=== PATIENT | female | born 1950 | race Caucasian/White ===

== ENCOUNTER 2020-05-21 05:11 | Emergency (ER) | payer MEDICARE ==
[~2020-05-21] VITALS: Ht 157.5 cm; Wt 75.0 kg
[~2020-05-21 05:11] MED LIST: BACL10TA2 PO; BUPR150T8 PO; CALC600T14 PO; CHOL200012 PO; DULO-31 PO; LEVE750T66 PO; LEVO137T24 PO; LIOT5TAB14 PO; LOSA25TA96 PO; METF-900 PO; [UNRECOGNIZED DRUG - OTHER] PO
[2020-05-21] MEDS ORDERED: aspirin 81mg tab.chew PO ONE (05:15)
--- NOTE | 2020-05-21 05:20 | NUR ---
X RAY AT BEDSIDE
[2020-05-21 06:17] LABS: BASOPHILS # (AUTO) 0.1 X10'3 (0-0.2); EOSINOPHILS # (AUTO) 0.4 X10'3 (0-0.9); LYMPHOCYTES # (AUTO) 2.6 X10'3 (1.1-4.8); MEAN CORPUSCULAR HGB CONC 33.9 g/dL (33.0-36.5); MONOCYTES # (AUTO) 0.6 X10'3 (0-0.9); NEUTROPHILS % (AUTO) 44.8 % (42-75)
[2020-05-21 06:19] LABS: BASOPHILS % (AUTO) 1.5 % (0-1); EOSINOPHILS % (AUTO) 5.9 % (0-6); HEMATOCRIT 41.2 % (35.0-45.0); LYMPHOCYTES % (AUTO) 38.9 % (21-51); MEAN CORPUSCULAR HEMOGLOBIN 30.3 PG (27.0-31.0); MEAN CORPUSCULAR VOLUME 89.5 FL (78-98); MEAN PLATELET VOLUME 7.5 FL (7.4-10.4); MONOCYTES % (AUTO) 8.9 % (2-12); PLATELET COUNT 312 X10'3 (140-440); RED CELL DISTRIBUTION WIDTH 12.8 % (11.5-14.5); WHITE BLOOD COUNT 6.7 X10'3 (4.5-11.0)
[2020-05-21 06:32] LABS: ALANINE AMINOTRANSFERASE 31 U/L (12-78); ALBUMIN 3.8 G/DL (3.4-5.0); ALKALINE PHOSPHATASE 140 IU/L (46-116); ANION GAP 7 (8-16); ASPARTATE AMINO TRANSFERASE 24 U/L (10-37); BILIRUBIN,TOTAL 0.3 MG/DL (0.1-1.0); BLOOD UREA NITROGEN 24 MG/DL (7-18); BUN/CREATININE RATIO 25.5 (6.6-38.0); CALCIUM 9.4 MG/DL (8.5-10.1); CHLORIDE 103 MMOL/L (99-107); CREATININE 0.94 MG/DL (0.40-0.90); GLUCOSE 100 MG/DL (70-104); POTASSIUM 4.2 MMOL/L (3.5-5.1); SODIUM 139 MMOL/L (135-145); TOTAL CARBON DIOXIDE 29.4 MMOL/L (24-32); TOTAL PROTEIN 7.8 G/DL (6.4-8.2); eGFR 59 ML/MIN
[2020-05-21 06:36] LABS: PARTIAL THROMBOPLASTIN TIME 28 SECONDS (22-32)
[2020-05-21 06:39] LABS: MAGNESIUM 2.3 MG/DL (1.5-2.4)
[2020-05-21] MEDS ORDERED: normal saline 1000ml 1,000 ML IV ONE (07:35)
[2020-05-21 07:53] VITALS: BP 184/89
[2020-05-21] MEDS ORDERED: acetaminophen 325mg tablet PO ONE (08:00)
--- NOTE | 2020-05-21 08:00 | NUR ---
PT C/O HEAD PAIN, DR. ONEILL MADE AWARE.
== END 2020-05-21 09:25 | disposition home or self-care (01) ==
LOC: ER 05:12
DX: I10 Essential (primary) hypertension (principal); R07.89 Other chest pain; I25.10 Atherosclerotic heart disease of native coronary artery without angina pectoris; E78.00 Pure hypercholesterolemia, unspecified; Z88.0 Allergy status to penicillin; Z88.2 Allergy status to sulfonamides; Z88.1 Allergy status to other antibiotic agents; Z88.5 Allergy status to narcotic agent; Z88.8 Allergy status to other drugs, medicaments and biological substances; Z79.899 Other long term (current) drug therapy
CPT/HCPCS: 36415; 71045; 80053; 83735; 83880; 84484; 85025; 85610; 85730; 93005; 96360; 99285; J7030

== ENCOUNTER 2020-08-20 08:27 | Outpatient (CLI) | payer MEDICARE | END 2020-08-20 23:59 | disposition home or self-care (01) | LOC: RT 08:27 | PROVIDERS: ATTEND Family Medicine | DX: R06.02 Shortness of breath (principal) | CPT/HCPCS: 94010; 94727; 94729 ==

== ENCOUNTER 2021-12-15 12:39 | Outpatient (CLI) | payer MEDICARE | END 2021-12-15 23:59 | disposition home or self-care (01) | LOC: RAD 12:39 | PROVIDERS: ATTEND Nurse Practitioner Family | DX: R56.9 Unspecified convulsions (principal) | CPT/HCPCS: 95816 ==

== ENCOUNTER 2022-01-13 08:17 | Day surgery (SDC) | payer MEDICARE ==
[~2022-01-13] VITALS: Ht 157.5 cm; Wt 76.8 kg
[2022-01-13] VITALS (11 sets, daily range): BP systolic 119–146; BP diastolic 71–83
[2022-01-13] MEDS ORDERED: MELO-100 PO (08:51)
[2022-01-13] MEDS ORDERED: CARV12.5 PO (08:51)
[2022-01-13] MEDS ORDERED: DULO60CA65 PO (08:51)
[2022-01-13] MEDS ORDERED: AMLO10TA13 PO (08:51)
--- NOTE | 2022-01-13 10:55 | NUR ---
Pt returned from lumbar puncture, luis miguel VASQUEZ Addendum: 01/13/22 at 1451 by Zuleima Roth RN time of pt return form lumbar puncture [id number]
--- NOTE | 2022-01-13 12:00 | NUR ---
Pt given sandwich and water, alejandra well.
[2022-01-13] MEDS ORDERED: acetaminophen 325mg tablet PO PRN (12:15)
[2022-01-13 12:33] LABS: GLUCOSE,CSF 57 MG/DL (40-75)
[2022-01-13 12:37] LABS: TOTAL PROTEIN,CSF 76 MG/DL (30-60)
[2022-01-13 13:00] LABS: APPEARANCE,CSF HAZY
[2022-01-13 13:01] LABS: CSF RBC 1580 /CU MM (0); CSF SUPERNATANT COLOR COLORLESS; CSF VOLUME 14 ML; CSF WBC CT 5 /CU MM (0-5); TUBE# COUNTED 4
[2022-01-14 11:09] LABS: IMMUNOGLOBULIN G, QN, SERUM 919 mg/dL (586-1602)
[2022-01-18 17:30] LABS: IMMUNOGLOBULIN G, QN CSF 3.8 mg/dL (0.0-6.7)
== END 2022-01-13 14:00 | disposition home or self-care (01) ==
LOC: SSTAY O 08:17
PROVIDERS: ATTEND Nurse Practitioner Family
DX: R90.82 White matter disease, unspecified (principal); I25.10 Atherosclerotic heart disease of native coronary artery without angina pectoris; I10 Essential (primary) hypertension; E78.00 Pure hypercholesterolemia, unspecified; Z88.1 Allergy status to other antibiotic agents; Z88.2 Allergy status to sulfonamides; Z88.0 Allergy status to penicillin; Z88.5 Allergy status to narcotic agent; Z88.8 Allergy status to other drugs, medicaments and biological substances; Z79.899 Other long term (current) drug therapy; Z82.49 Family history of ischemic heart disease and other diseases of the circulatory system
CPT/HCPCS: 36415; 62328; 82040; 82042; 82164; 82784; 82945; 83873; 83916; 84157; 86592; 88108; 89051

== ENCOUNTER 2023-03-25 06:55 | Emergency (ER) | payer MEDICARE ==
[~2023-03-25] VITALS: Ht 157.5 cm; Wt 72.0 kg
[~2023-03-25 06:55] MED LIST changes: +AMLO10TA13 PO; -BUPR150T8 PO; +CARV12.5 PO; +DULO60CA65 PO; -LEVO137T24 PO; -LIOT5TAB14 PO; +MELO-100 PO; -METF-900 PO; -[UNRECOGNIZED DRUG - OTHER] PO
[2023-03-25 07:08] VITALS: BP 134/77
[2023-03-25] MEDS ORDERED: LIDOcaine 5% patch TP STA (09:17)
[2023-03-25] MEDS ORDERED: methylPREDNISolone sod succ 125mg/2ml vial IM ONE (09:20)
[2023-03-25] MEDS ORDERED: HYDR-3973 PO (09:29)
[2023-03-25] MEDS ORDERED: METH4TAB81 PO (09:29)
== END 2023-03-25 09:43 | disposition home or self-care (01) ==
LOC: ER 06:56
DX: M25.511 Pain in right shoulder (principal); I10 Essential (primary) hypertension; E78.00 Pure hypercholesterolemia, unspecified; Z88.0 Allergy status to penicillin; Z88.2 Allergy status to sulfonamides; Z88.1 Allergy status to other antibiotic agents; Z91.041 Radiographic dye allergy status
CPT/HCPCS: 96372; 99283; J2930

== ENCOUNTER 2024-11-21 10:02 | Inpatient (IN) | payer MEDICARE ==
[2024-11-21] VITALS (12 sets, daily range): BP systolic 70–121; BP diastolic 45–68; PULSE 80–156; RESP 16–22; O2SAT 92–100
[~2024-11-21] VITALS: Ht 157.5 cm; Wt 81.0 kg
[~2024-11-21 10:02] MED LIST changes: +LOSA-415 PO; -LOSA25TA96 PO; +METH4TAB81 PO; +rocuronium 10mg/ml inj IV ONE
[2024-11-21 10:36] LABS: BASOPHILS % (AUTO) 0.2 % (0-1); EOSINOPHILS % (AUTO) 0 % (0-6); HEMATOCRIT 40.8 % (35.0-45.0); LYMPHOCYTES # (AUTO) 0.9 X10'3 (1.1-4.8); LYMPHOCYTES % (AUTO) 7.3 % (21-51); MEAN CORPUSCULAR HEMOGLOBIN 31.2 PG (27.0-31.0); MEAN CORPUSCULAR HGB CONC 34.4 g/dL (33.0-36.5); MEAN CORPUSCULAR VOLUME 90.7 FL (78-98); MEAN PLATELET VOLUME 7.3 FL (7.4-10.4); MONOCYTES % (AUTO) 8.8 % (2-12); NEUTROPHILS % (AUTO) 83.7 % (42-75); PLATELET COUNT 259 X10'3 (140-440); RED CELL DISTRIBUTION WIDTH 12.5 % (11.5-14.5); WHITE BLOOD COUNT 11.9 X10'3 (4.5-11.0)
[2024-11-21 10:45] LABS: D-DIMER 0.92 MG/L FEU (0-0.50)
[2024-11-21 11:04] LABS: ALBUMIN 3.6 G/DL (3.4-5.0); ANION GAP 9 (8-16); BLOOD UREA NITROGEN 12 MG/DL (7-18); BUN/CREATININE RATIO 14.5 (10.0-20.0); CHLORIDE 94 MMOL/L (99-107); CREATININE 0.83 MG/DL (0.40-0.90); GLUCOSE 165 MG/DL (70-104); MAGNESIUM 1.8 MG/DL (1.5-2.4); POTASSIUM 3.7 MMOL/L (3.5-5.1); PRO BRAIN NATRIURETIC PEPTIDE 461 PG/ML (0-450); SODIUM 129 MMOL/L (135-145); TOTAL CARBON DIOXIDE 26.3 MMOL/L (24-32); eCRCL 46 ML/MIN; eGFR 67 ML/MIN
[2024-11-21] MEDS ORDERED: iohexol 350MG/ML 100ml bottle IV ONE (11:23)
[2024-11-21] MEDS: dexamethasone sod phosphate 10mg/ml inj IV STA (12:33)
[2024-11-21] MEDS: CefTRIAXone 2gm/D5W 50ml BAG 50 ML IV ONE (12:34)
[2024-11-21] MEDS: normal saline 1000ML IV soln IVB ONE ×2 (13:03→14:50)
[2024-11-21] MEDS: vancomycin/NS 1 GM ADD-VANTAGE 250 ML IV SCH (13:03)
[2024-11-21 14:49] LABS: ABG BASE EXCESS -7.4 mmol/L (-2.0-3.0); ABG HCO3 20.1 mmol/L (21.0-28.0); ABG PCO2 (T) 50.9 mmHg (32.0-45.0); ABG PH (T) 7.222 (7.350-7.450); ABG PO2 (T) 63.5 mmHg (83.0-108.0); ALLEN'S TEST POSITIVE; FCOHb 0.3 % (0.5-1.5); FHHb 12.9 % (0.0-5.0); FMetHb 0.1 % (0.0-1.5); FO2Hb 86.7 % (94.0-98.0); MODE VENT - AC; PATIENT TEMPERATURE 38.2; PEEP 8 cm H2O; RESPIRATORY RATE 18 b/min; TIDAL VOLUME 350 mL; TOTAL HEMOGLOBIN 15.1 G/dl (12.0-16.0)
[2024-11-21] MEDS: propofol 1000mg/100ml bottle 100 ML IV SCH ×2 (14:51→16:41)
[2024-11-21] MEDS: LidoCAINE 2% Topical Jelly 11mL syringe (UROJET) TOP ONE (14:51)
[2024-11-21] MEDS ORDERED: magnesium hydroxide 30ml (MOM) UD suspension PO PRN (15:05)
[2024-11-21] MEDS ORDERED: morphine 4 MG/ML inj SYRINge IV PRN (15:05)
[2024-11-21] MEDS ORDERED: acetaminophen 325mg tablet PO PRN ×2 (15:05)
[2024-11-21] MEDS ORDERED: morphine 2 MG/ML inj. syringe IV PRN (15:05)
[2024-11-21 15:16] LABS: BILIRUBIN,URINE NEGATIVE (Neg); CLARITY,URINE CLEAR (Clear); COLOR,URINE YELLOW (Yellow); GLUCOSE, URINE NEGATIVE (Neg); KETONES,URINE TRACE mg/dl (Neg); LEUKOCYTE ESTERASE ,URINE NEGATIVE (Neg); NITRITES, URINE NEGATIVE (Neg); OCCULT BLOOD,URINE TRACE-INTACT (Neg); PROTEIN,URINE 100 mg/dl (Neg); UROBILINOGEN,URINE 0.2 E.U/dL (0.2-1.0)
[2024-11-21 15:21] LABS: UA COLLECTION TYPE STRAIGHT CATH
[2024-11-21 15:24] LABS: BACTERIA,URINE NONE SEEN /HPF (Neg); RBC,URINE 0-2 /HPF (0-2); SQUAMOUS EPITHELIAL CELL,UR FEW /LPF (FEW); WBC,URINE NONE SEEN /HPF (0-4)
[2024-11-21] MEDS: normal saline 1000ml 1,000 ML IV ONE (15:59)
[2024-11-21] MEDS: acetaminophen 1,000mg/100ml IV 100 ML IV ONE (16:00)
[2024-11-21] MEDS ORDERED: fentaNYL/PF 50MCG/1 ML 2ML syringe IV PRN (16:05)
[2024-11-21] MEDS: FENTANYL-0.9 % NACL/PF 100 ML IV SCH (17:11)
[2024-11-21] MEDS: NORepinephrine 8mg/ 250ml NS 250 ML IV SCH (17:52)
[2024-11-21] MEDS: ringers solution, lacted 1,000 ML IV ONE (17:53)
[2024-11-21] MEDS: methylPREDNISolone sod succ 125mg/2ml vial IV SCH (19:12)
[2024-11-21] MEDS: ringers solution, lacted 1,000 ML IV SCH (19:13)
[2024-11-21] MEDS: linezolid 600mg/300ml PREMIX 300 ML IV SCH (20:07)
[2024-11-21] MEDS: oseltamivir phos 75mg capsule PO SCH (20:07)
[2024-11-21] MEDS: enoxaparin 40mg/0.4ml syringe SUBCUT SCH (20:07)
[2024-11-21] MEDS: doxycycline inj 100 MG in normal saline 100ml IV soln 100 ML IV SCH (20:07)
[2024-11-22] VITALS (37 sets, daily range): BP systolic 94–131; BP diastolic 47–69; PULSE 66–87; RESP 18–24; O2SAT 93–97
[2024-11-22 03:09] LABS: BASOPHILS % (AUTO) 0.1 % (0-1); EOSINOPHILS % (AUTO) 0 % (0-6); HEMATOCRIT 35.6 % (35.0-45.0); HEMOGLOBIN 12.2 g/dl (12.0-16.0); LYMPHOCYTES # (AUTO) 1.2 X10'3 (1.1-4.8); LYMPHOCYTES % (AUTO) 8.4 % (21-51); MEAN CORPUSCULAR HGB CONC 34.2 g/dL (33.0-36.5); MEAN CORPUSCULAR VOLUME 90.5 FL (78-98); MEAN PLATELET VOLUME 7.4 FL (7.4-10.4); MONOCYTES # (AUTO) 0.5 X10'3 (0-0.9); MONOCYTES % (AUTO) 3.7 % (2-12); NEUTROPHILS # (AUTO) 12.1 X10'3 (1.8-7.7); NEUTROPHILS % (AUTO) 87.8 % (42-75); PLATELET COUNT 250 X10'3 (140-440); RED BLOOD COUNT 3.94 X10'6 (4.20-5.60); RED CELL DISTRIBUTION WIDTH 12.4 % (11.5-14.5); WHITE BLOOD COUNT 13.8 X10'3 (4.5-11.0)
[2024-11-22 03:25] LABS: ALANINE AMINOTRANSFERASE 40 U/L (12-78); ALBUMIN 2.1 G/DL (3.4-5.0); ALBUMIN/GLOBULIN RATIO 0.6 (1.1-1.5); ALKALINE PHOSPHATASE 128 IU/L (46-116); ANION GAP 7 (8-16); ASPARTATE AMINO TRANSFERASE 55 U/L (10-37); BILIRUBIN,TOTAL 0.4 MG/DL (0.1-1.0); BLOOD UREA NITROGEN 10 MG/DL (7-18); BUN/CREATININE RATIO 14.9 (10.0-20.0); CALCIUM 7.6 MG/DL (8.5-10.1); CHLORIDE 106 MMOL/L (99-107); CREATININE 0.67 MG/DL (0.40-0.90); GLUCOSE 210 MG/DL (70-104); MAGNESIUM 1.6 MG/DL (1.5-2.4); POTASSIUM 3.3 MMOL/L (3.5-5.1); SODIUM 137 MMOL/L (135-145); TOTAL CARBON DIOXIDE 23.9 MMOL/L (24-32); TOTAL PROTEIN 5.9 G/DL (6.4-8.2); eCRCL 57 ML/MIN; eGFR 86 ML/MIN
[2024-11-22 03:37] LABS: ABG BASE EXCESS -3.9 mmol/L (-2.0-3.0); ABG HCO3 20.7 mmol/L (21.0-28.0); ABG OXYGEN SATURATION 95.7 % (94.0-98.0); ABG PCO2 (T) 35.3 mmHg (32.0-45.0); ABG PH (T) 7.384 (7.350-7.450); ABG PO2 (T) 73.3 mmHg (83.0-108.0); ALLEN'S TEST POSITIVE; FCOHb 0.3 % (0.5-1.5); FHHb 4.3 % (0.0-5.0); FMetHb 0.3 % (0.0-1.5); FO2Hb 95.1 % (94.0-98.0); MODE VENT - AC; PATIENT TEMPERATURE 36.6; PEEP 12 cm H2O; RESPIRATORY RATE 18 b/min; TIDAL VOLUME 350 mL; TOTAL HEMOGLOBIN 13.1 G/dl (12.0-16.0)
[2024-11-22] MEDS ORDERED: magnesium sulf-water 4G/100mL 100 ML IV PRN (04:05)
[2024-11-22] MEDS ORDERED: magnesium sulf-water 2g/50mL 50 ML IV PRN (04:05)
[2024-11-22] MEDS ORDERED: glucagon, human recombinant 1mg kit SUBCUT PRN ×2 (04:15→07:35)
[2024-11-22] MEDS ORDERED: DEXTROSE 15 GM of carb/4 tabs (each vial/BOTTLE has 4 tablets) PO PRN ×4 (04:15→07:35)
[2024-11-22] MEDS ORDERED: dextrose 50%-water 50ml dispensing syringe IV PRN ×4 (04:15→07:35)
[2024-11-22] MEDS: potassium Cl 40MEQ/270ML bag 270 ML IV PRN (04:31)
[2024-11-22] MEDS ORDERED: INSULIN LISPRO 100 UNIT/ML INSULN.PEN MULTI-DOSE SQ SCH (07:00)
[2024-11-22] MEDS ORDERED: OSELTAMIVIR 30MG/5ML (6MG/ML) **ORAL** SYRINGE OGT SCH (07:24)
[2024-11-22] MEDS: pantoprazole 40 MG vial IV SCH (07:26)
[2024-11-22] MEDS ORDERED: NPH, human insulin isophane inj. SQ SCH (08:00)
[2024-11-22] MEDS: OSELTAMIVIR 30MG/5ML (6MG/ML) **ORAL** SYRINGE OGT SCH (08:00)
[2024-11-22] MEDS ORDERED: Dextrose 10%-water IV solution 1,000 ML IV SCH (08:05)
[2024-11-22] MEDS ORDERED: magnesium hydroxide 30ml (MOM) UD suspension OGT PRN (12:03)
[2024-11-22] MEDS ORDERED: DEXTROSE 15 GM of carb/4 tabs (each vial/BOTTLE has 4 tablets) OGT PRN ×2 (12:03)
[2024-11-22 12:18] LABS: PREALBUMIN 10.3 MG/DL (19-36); TRIGLYCERIDES 81 MG/DL (20-135)
[2024-11-22] MEDS: insulin regular, human U-100 10ml vial - multi-dose SQ SCH (13:39)
[2024-11-22] MEDS: furosemide 10 MG/1 ML 10ml inj IV ONE (16:48)
[2024-11-22] MEDS: mineral oil/petrolatum ophthal oint EACHEYE SCH (19:51)
[2024-11-22] MEDS: enoxaparin 40mg/0.4ml syringe SUBCUT SCH (19:51)
[2024-11-23] VITALS (39 sets, daily range): BP systolic 97–144; BP diastolic 45–65; PULSE 64–87; RESP 9–23; O2SAT 91–97
[2024-11-23] MEDS ORDERED: VANCOMYCIN LEVEL IV ONE (00:30)
[2024-11-23 01:50] LABS: BASOPHILS % (AUTO) 0.1 % (0-1); EOSINOPHILS % (AUTO) 0 % (0-6); HEMATOCRIT 31.1 % (35.0-45.0); HEMOGLOBIN 10.5 g/dl (12.0-16.0); LYMPHOCYTES # (AUTO) 1.2 X10'3 (1.1-4.8); LYMPHOCYTES % (AUTO) 9.1 % (21-51); MEAN CORPUSCULAR HEMOGLOBIN 30.6 PG (27.0-31.0); MEAN CORPUSCULAR HGB CONC 33.7 g/dL (33.0-36.5); MEAN CORPUSCULAR VOLUME 91.1 FL (78-98); MEAN PLATELET VOLUME 8.5 FL (7.4-10.4); MONOCYTES # (AUTO) 0.6 X10'3 (0-0.9); MONOCYTES % (AUTO) 4.5 % (2-12); NEUTROPHILS % (AUTO) 86.3 % (42-75); PLATELET COUNT 222 X10'3 (140-440); RED BLOOD COUNT 3.42 X10'6 (4.20-5.60); RED CELL DISTRIBUTION WIDTH 12.7 % (11.5-14.5); WHITE BLOOD COUNT 12.7 X10'3 (4.5-11.0)
[2024-11-23 02:06] LABS: ALANINE AMINOTRANSFERASE 37 U/L (12-78); ALBUMIN 1.9 G/DL (3.4-5.0); ALBUMIN/GLOBULIN RATIO 0.5 (1.1-1.5); ALKALINE PHOSPHATASE 107 IU/L (46-116); ANION GAP 7 (8-16); ASPARTATE AMINO TRANSFERASE 36 U/L (10-37); BILIRUBIN,TOTAL 0.2 MG/DL (0.1-1.0); BLOOD UREA NITROGEN 22 MG/DL (7-18); BUN/CREATININE RATIO 28.9 (10.0-20.0); CALCIUM 7.6 MG/DL (8.5-10.1); CHLORIDE 108 MMOL/L (99-107); CREATININE 0.76 MG/DL (0.40-0.90); GLUCOSE 212 MG/DL (70-104); MAGNESIUM 1.7 MG/DL (1.5-2.4); PHOSPHORUS 1.9 MG/DL (2.3-4.5); POTASSIUM 3.8 MMOL/L (3.5-5.1); SODIUM 141 MMOL/L (135-145); TOTAL CARBON DIOXIDE 25.7 MMOL/L (24-32); TOTAL PROTEIN 5.5 G/DL (6.4-8.2); eCRCL 51 ML/MIN; eGFR 74 ML/MIN
[2024-11-23 03:16] LABS: ABG BASE EXCESS -2.6 mmol/L (-2.0-3.0); ABG PCO2 (T) 36.8 mmHg (32.0-45.0); ABG PH (T) 7.393 (7.350-7.450); ABG PO2 (T) 70.7 mmHg (83.0-108.0); FCOHb 0.3 % (0.5-1.5); FMetHb 0.3 % (0.0-1.5); FO2Hb 94.4 % (94.0-98.0); MODE ac/prvc; PATIENT TEMPERATURE 36.5; PEEP 8 cm H2O; RESPIRATORY RATE 18 b/min; TIDAL VOLUME 350 mL; TOTAL HEMOGLOBIN 11.1 G/dl (12.0-16.0)
[2024-11-24] VITALS (33 sets, daily range): BP systolic 102–172; BP diastolic 51–74; PULSE 59–85; RESP 17–25; O2SAT 90–99
[2024-11-24 02:02] LABS: BASOPHILS % (AUTO) 0.1 % (0-1); EOSINOPHILS % (AUTO) 0.1 % (0-6); HEMATOCRIT 30.7 % (35.0-45.0); HEMOGLOBIN 10.5 g/dl (12.0-16.0); LYMPHOCYTES # (AUTO) 1.3 X10'3 (1.1-4.8); LYMPHOCYTES % (AUTO) 9.5 % (21-51); MEAN CORPUSCULAR HEMOGLOBIN 30.8 PG (27.0-31.0); MEAN CORPUSCULAR VOLUME 90.4 FL (78-98); MEAN PLATELET VOLUME 8.3 FL (7.4-10.4); MONOCYTES # (AUTO) 0.8 X10'3 (0-0.9); MONOCYTES % (AUTO) 5.6 % (2-12); NEUTROPHILS # (AUTO) 11.5 X10'3 (1.8-7.7); NEUTROPHILS % (AUTO) 84.7 % (42-75); PLATELET COUNT 225 X10'3 (140-440); WHITE BLOOD COUNT 13.5 X10'3 (4.5-11.0)
[2024-11-24 02:10] LABS: ALANINE AMINOTRANSFERASE 75 U/L (12-78); ALBUMIN/GLOBULIN RATIO 0.6 (1.1-1.5); ALKALINE PHOSPHATASE 140 IU/L (46-116); ANION GAP 7 (8-16); ASPARTATE AMINO TRANSFERASE 87 U/L (10-37); BILIRUBIN,TOTAL 0.3 MG/DL (0.1-1.0); BLOOD UREA NITROGEN 36 MG/DL (7-18); BUN/CREATININE RATIO 47.4 (10.0-20.0); CALCIUM 7.7 MG/DL (8.5-10.1); CHLORIDE 106 MMOL/L (99-107); CREATININE 0.76 MG/DL (0.40-0.90); GLUCOSE 181 MG/DL (70-104); MAGNESIUM 1.8 MG/DL (1.5-2.4); PHOSPHORUS 2.3 MG/DL (2.3-4.5); POTASSIUM 3.9 MMOL/L (3.5-5.1); SODIUM 138 MMOL/L (135-145); TOTAL CARBON DIOXIDE 24.9 MMOL/L (24-32); TOTAL PROTEIN 5.6 G/DL (6.4-8.2); eCRCL 51 ML/MIN; eGFR 74 ML/MIN
[2024-11-24 03:30] LABS: ABG BASE EXCESS -2.1 mmol/L (-2.0-3.0); ABG HCO3 23.2 mmol/L (21.0-28.0); ABG OXYGEN SATURATION 92.8 % (94.0-98.0); ABG PH (T) 7.368 (7.350-7.450); ABG PO2 (T) 62.2 mmHg (83.0-108.0); FCOHb 0.3 % (0.5-1.5); FHHb 7.2 % (0.0-5.0); FMetHb 0.3 % (0.0-1.5); FO2Hb 92.2 % (94.0-98.0); MODE AC/PRVC; PATIENT TEMPERATURE 36.5; PEEP 8 cm H2O; RESPIRATORY RATE 18 b/min; TIDAL VOLUME 350 mL; TOTAL HEMOGLOBIN 10.8 G/dl (12.0-16.0)
[2024-11-24 03:53] LABS: TRIGLYCERIDES 317 MG/DL (20-135)
[2024-11-24] MEDS: methylPREDNISolone sod succ/PF 40mg inj. IV SCH (08:31)
[2024-11-24] MEDS: furosemide 10 MG/1 ML 10ml inj IV ONE (08:35)
[2024-11-24] MEDS: ondansetron/PF 4mg/2ml inj IV PRN (20:47)
[2024-11-24] MEDS: midazolam 100mg in NS 100ml 100 ML IV SCH (21:09)
[2024-11-25] VITALS (34 sets, daily range): BP systolic 108–171; BP diastolic 52–70; PULSE 59–74; RESP 18–20; O2SAT 91–96
[2024-11-25 02:48] LABS: BASOPHILS % (AUTO) 0.1 % (0-1); EOSINOPHILS % (AUTO) 0 % (0-6); HEMATOCRIT 28.8 % (35.0-45.0); HEMOGLOBIN 9.7 g/dl (12.0-16.0); LYMPHOCYTES % (AUTO) 13.2 % (21-51); MEAN CORPUSCULAR HEMOGLOBIN 30.7 PG (27.0-31.0); MEAN CORPUSCULAR HGB CONC 33.8 g/dL (33.0-36.5); MEAN CORPUSCULAR VOLUME 90.8 FL (78-98); MEAN PLATELET VOLUME 8.3 FL (7.4-10.4); MONOCYTES # (AUTO) 0.6 X10'3 (0-0.9); MONOCYTES % (AUTO) 3.9 % (2-12); NEUTROPHILS # (AUTO) 12.4 X10'3 (1.8-7.7); NEUTROPHILS % (AUTO) 82.8 % (42-75); PLATELET COUNT 226 X10'3 (140-440); RED BLOOD COUNT 3.17 X10'6 (4.20-5.60); RED CELL DISTRIBUTION WIDTH 12.6 % (11.5-14.5); WHITE BLOOD COUNT 14.9 X10'3 (4.5-11.0)
[2024-11-25 03:06] LABS: ALANINE AMINOTRANSFERASE 103 U/L (12-78); ALBUMIN 1.9 G/DL (3.4-5.0); ALBUMIN/GLOBULIN RATIO 0.6 (1.1-1.5); ALKALINE PHOSPHATASE 137 IU/L (46-116); ANION GAP 6 (8-16); ASPARTATE AMINO TRANSFERASE 63 U/L (10-37); BILIRUBIN,TOTAL 0.4 MG/DL (0.1-1.0); BLOOD UREA NITROGEN 35 MG/DL (7-18); BUN/CREATININE RATIO 51.5 (10.0-20.0); CALCIUM 7.7 MG/DL (8.5-10.1); CHLORIDE 110 MMOL/L (99-107); CREATININE 0.68 MG/DL (0.40-0.90); GLUCOSE 161 MG/DL (70-104); POTASSIUM 3.6 MMOL/L (3.5-5.1); SODIUM 146 MMOL/L (135-145); TOTAL CARBON DIOXIDE 30.5 MMOL/L (24-32); TOTAL PROTEIN 5.2 G/DL (6.4-8.2); eCRCL 57 ML/MIN; eGFR 84 ML/MIN
[2024-11-25 03:31] LABS: ABG BASE EXCESS -0.7 mmol/L (-2.0-3.0); ABG OXYGEN SATURATION 95.9 % (94.0-98.0); ABG PH (T) 7.458 (7.350-7.450); ABG PO2 (T) 73.4 mmHg (83.0-108.0); FCOHb 0.3 % (0.5-1.5); FHHb 4.1 % (0.0-5.0); FMetHb 0.3 % (0.0-1.5); FO2Hb 95.3 % (94.0-98.0); MODE ac/prvc; PATIENT TEMPERATURE 36.2; PEEP 8 cm H2O; RESPIRATORY RATE 18 b/min; TIDAL VOLUME 350 mL; TOTAL HEMOGLOBIN 10.1 G/dl (12.0-16.0)
[2024-11-25] MEDS: propofol 1000mg/100ml bottle 100 ML IV SCH (16:15)
[2024-11-26] VITALS (34 sets, daily range): BP systolic 133–180; BP diastolic 55–82; PULSE 58–80; RESP 14–19; O2SAT 92–98
[2024-11-26 02:18] LABS: BASOPHILS % (AUTO) 0.1 % (0-1); EOSINOPHILS % (AUTO) 0 % (0-6); HEMATOCRIT 29.5 % (35.0-45.0); HEMOGLOBIN 10.1 g/dl (12.0-16.0); LYMPHOCYTES # (AUTO) 1.4 X10'3 (1.1-4.8); LYMPHOCYTES % (AUTO) 10.9 % (21-51); MEAN CORPUSCULAR HGB CONC 34.2 g/dL (33.0-36.5); MEAN CORPUSCULAR VOLUME 90.5 FL (78-98); MEAN PLATELET VOLUME 7.8 FL (7.4-10.4); MONOCYTES # (AUTO) 0.6 X10'3 (0-0.9); NEUTROPHILS # (AUTO) 10.7 X10'3 (1.8-7.7); PLATELET COUNT 259 X10'3 (140-440); RED BLOOD COUNT 3.26 X10'6 (4.20-5.60); RED CELL DISTRIBUTION WIDTH 12.8 % (11.5-14.5); WHITE BLOOD COUNT 12.8 X10'3 (4.5-11.0)
[2024-11-26 02:34] LABS: ALANINE AMINOTRANSFERASE 91 U/L (12-78); ALBUMIN/GLOBULIN RATIO 0.6 (1.1-1.5); ALKALINE PHOSPHATASE 131 IU/L (46-116); ANION GAP 6 (8-16); ASPARTATE AMINO TRANSFERASE 36 U/L (10-37); BILIRUBIN,TOTAL 0.4 MG/DL (0.1-1.0); BLOOD UREA NITROGEN 36 MG/DL (7-18); CALCIUM 7.7 MG/DL (8.5-10.1); CHLORIDE 111 MMOL/L (99-107); CREATININE 0.61 MG/DL (0.40-0.90); GLUCOSE 200 MG/DL (70-104); MAGNESIUM 2.2 MG/DL (1.5-2.4); PHOSPHORUS 2.9 MG/DL (2.3-4.5); POTASSIUM 3.5 MMOL/L (3.5-5.1); PREALBUMIN 33.8 MG/DL (19-36); SODIUM 147 MMOL/L (135-145); TOTAL CARBON DIOXIDE 29.7 MMOL/L (24-32); TOTAL PROTEIN 5.3 G/DL (6.4-8.2); TRIGLYCERIDES 266 MG/DL (20-135); eCRCL 63 ML/MIN; eGFR > 90 ML/MIN
[2024-11-26 03:19] LABS: ABG HCO3 27.7 mmol/L (21.0-28.0); ABG OXYGEN SATURATION 93.9 % (94.0-98.0); ABG PCO2 (T) 41.3 mmHg (32.0-45.0); ABG PH (T) 7.441 (7.350-7.450); ABG PO2 (T) 64.1 mmHg (83.0-108.0); ALLEN'S TEST NEGATIVE; FCOHb 0.3 % (0.5-1.5); FHHb 6.1 % (0.0-5.0); FMetHb 0.3 % (0.0-1.5); FO2Hb 93.3 % (94.0-98.0); MODE ac/prvc; PATIENT TEMPERATURE 36.2; PEEP 8 cm H2O; RESPIRATORY RATE 18 b/min; TIDAL VOLUME 350 mL; TOTAL HEMOGLOBIN 10.8 G/dl (12.0-16.0)
[2024-11-26] MEDS: furosemide 10 MG/1 ML 10ml inj IV ONE (06:10)
[2024-11-26] MEDS: methylPREDNISolone sod succ/PF 40mg inj. IV SCH (07:46)
[2024-11-26] MEDS ORDERED: furosemide 40mg/4ml inj IV SCH (10:43)
[2024-11-26] MEDS: labetalol 100mg tablet PO SCH (16:10)
[2024-11-26] MEDS: furosemide 40mg/4ml inj IV SCH (21:39)
[2024-11-27] VITALS (34 sets, daily range): BP systolic 141–190; BP diastolic 59–89; PULSE 55–99; RESP 11–19; O2SAT 89–98
[2024-11-27 02:20] LABS: BASOPHILS % (AUTO) 0 % (0-1); EOSINOPHILS % (AUTO) 0 % (0-6); HEMOGLOBIN 10.6 g/dl (12.0-16.0); LYMPHOCYTES # (AUTO) 1.7 X10'3 (1.1-4.8); LYMPHOCYTES % (AUTO) 13.1 % (21-51); MEAN CORPUSCULAR HEMOGLOBIN 30.6 PG (27.0-31.0); MEAN CORPUSCULAR HGB CONC 34.1 g/dL (33.0-36.5); MEAN CORPUSCULAR VOLUME 89.9 FL (78-98); MEAN PLATELET VOLUME 7.6 FL (7.4-10.4); MONOCYTES # (AUTO) 1.1 X10'3 (0-0.9); MONOCYTES % (AUTO) 8.5 % (2-12); NEUTROPHILS % (AUTO) 78.4 % (42-75); PLATELET COUNT 304 X10'3 (140-440); RED BLOOD COUNT 3.45 X10'6 (4.20-5.60); WHITE BLOOD COUNT 12.8 X10'3 (4.5-11.0)
[2024-11-27 02:29] LABS: ALANINE AMINOTRANSFERASE 79 U/L (12-78); ALBUMIN/GLOBULIN RATIO 0.6 (1.1-1.5); ALKALINE PHOSPHATASE 122 IU/L (46-116); ANION GAP 3 (8-16); ASPARTATE AMINO TRANSFERASE 30 U/L (10-37); BILIRUBIN,TOTAL 0.4 MG/DL (0.1-1.0); BLOOD UREA NITROGEN 40 MG/DL (7-18); BUN/CREATININE RATIO 54.8 (10.0-20.0); CALCIUM 7.5 MG/DL (8.5-10.1); CHLORIDE 107 MMOL/L (99-107); CREATININE 0.73 MG/DL (0.40-0.90); GLUCOSE 145 MG/DL (70-104); PHOSPHORUS 3.3 MG/DL (2.3-4.5); POTASSIUM 3.2 MMOL/L (3.5-5.1); SODIUM 144 MMOL/L (135-145); TOTAL CARBON DIOXIDE 33.6 MMOL/L (24-32); TOTAL PROTEIN 5.6 G/DL (6.4-8.2); eCRCL 53 ML/MIN; eGFR 78 ML/MIN
[2024-11-27 02:40] LABS: TOTAL CELLS COUNTED 100
[2024-11-27 03:45] LABS: ABG BASE EXCESS 7.5 mmol/L (-2.0-3.0); ABG HCO3 31.4 mmol/L (21.0-28.0); ABG OXYGEN SATURATION 94.1 % (94.0-98.0); ABG PCO2 (T) 40.9 mmHg (32.0-45.0); ABG PH (T) 7.502 (7.350-7.450); ABG PO2 (T) 62.8 mmHg (83.0-108.0); FCOHb 0.1 % (0.5-1.5); FHHb 5.9 % (0.0-5.0); FMetHb 0.3 % (0.0-1.5); FO2Hb 93.7 % (94.0-98.0); MODE ac/prvc; PATIENT TEMPERATURE 36.6; PEEP 8 cm H2O; RESPIRATORY RATE 18 b/min; TIDAL VOLUME 350 mL; TOTAL HEMOGLOBIN 10.9 G/dl (12.0-16.0)
[2024-11-27] MEDS: LIDOcaine 1% (10mg/ml) 2ml vial ONE (10:27)
[2024-11-27] MEDS: labetalol 100mg tablet OGT SCH (19:31)
[2024-11-28] VITALS (36 sets, daily range): BP systolic 64–204; BP diastolic 51–94; PULSE 60–96; RESP 12–22; O2SAT 91–95
[2024-11-28 02:43] LABS: BASOPHILS % (AUTO) 0.1 % (0-1); EOSINOPHILS % (AUTO) 0.1 % (0-6); HEMOGLOBIN 10.9 g/dl (12.0-16.0); LYMPHOCYTES # (AUTO) 1.4 X10'3 (1.1-4.8); LYMPHOCYTES % (AUTO) 11.3 % (21-51); MEAN CORPUSCULAR VOLUME 91.1 FL (78-98); MEAN PLATELET VOLUME 7.4 FL (7.4-10.4); MONOCYTES # (AUTO) 0.7 X10'3 (0-0.9); MONOCYTES % (AUTO) 5.3 % (2-12); NEUTROPHILS # (AUTO) 10.7 X10'3 (1.8-7.7); NEUTROPHILS % (AUTO) 83.2 % (42-75); PLATELET COUNT 297 X10'3 (140-440); RED BLOOD COUNT 3.51 X10'6 (4.20-5.60); RED CELL DISTRIBUTION WIDTH 12.9 % (11.5-14.5); WHITE BLOOD COUNT 12.8 X10'3 (4.5-11.0)
[2024-11-28 03:06] LABS: ALANINE AMINOTRANSFERASE 79 U/L (12-78); ALBUMIN 2.1 G/DL (3.4-5.0); ALBUMIN/GLOBULIN RATIO 0.6 (1.1-1.5); ALKALINE PHOSPHATASE 115 IU/L (46-116); ANION GAP 5 (8-16); ASPARTATE AMINO TRANSFERASE 28 U/L (10-37); BILIRUBIN,TOTAL 0.4 MG/DL (0.1-1.0); BLOOD UREA NITROGEN 46 MG/DL (7-18); BUN/CREATININE RATIO 74.2 (10.0-20.0); CALCIUM 7.7 MG/DL (8.5-10.1); CHLORIDE 106 MMOL/L (99-107); CREATININE 0.62 MG/DL (0.40-0.90); GLUCOSE 175 MG/DL (70-104); MAGNESIUM 2.4 MG/DL (1.5-2.4); PHOSPHORUS 4.5 MG/DL (2.3-4.5); POTASSIUM 3.8 MMOL/L (3.5-5.1); SODIUM 146 MMOL/L (135-145); TOTAL CARBON DIOXIDE 35.2 MMOL/L (24-32); TOTAL PROTEIN 5.6 G/DL (6.4-8.2); eCRCL 62 ML/MIN; eGFR > 90 ML/MIN
[2024-11-28 03:35] LABS: ABG BASE EXCESS 5.7 mmol/L (-2.0-3.0); ABG OXYGEN SATURATION 93.5 % (94.0-98.0); ABG PCO2 (T) 36.1 mmHg (32.0-45.0); ABG PH (T) 7.519 (7.350-7.450); ABG PO2 (T) 60.5 mmHg (83.0-108.0); FHHb 6.5 % (0.0-5.0); FMetHb 0.3 % (0.0-1.5); FO2Hb 93.2 % (94.0-98.0); MODE PRVC; PATIENT TEMPERATURE 36.2; PEEP 8 cm H2O; RESPIRATORY RATE 18 b/min; TIDAL VOLUME 350 mL; TOTAL HEMOGLOBIN 11.7 G/dl (12.0-16.0)
[2024-11-28] MEDS: COMMUNICATION ORDER 1 EA MISC MC ONE (09:14)
[2024-11-28] MEDS: hydrALAZINE 20mg/ml inj. IV PRN (11:47)
[2024-11-28 13:23] LABS: ABG BASE EXCESS 10.1 mmol/L (-2.0-3.0); ABG HCO3 33.4 mmol/L (21.0-28.0); ABG OXYGEN SATURATION 90.3 % (94.0-98.0); ABG PCO2 (T) 39.9 mmHg (32.0-45.0); ABG PH (T) 7.541 (7.350-7.450); ABG PO2 (T) 55.8 mmHg (83.0-108.0); FCOHb 0.1 % (0.5-1.5); FHHb 9.7 % (0.0-5.0); FMetHb 0.3 % (0.0-1.5); FO2Hb 89.9 % (94.0-98.0); MODE CPAP; PATIENT TEMPERATURE 37.1; PEEP 5 cm H2O; TOTAL HEMOGLOBIN 12.3 G/dl (12.0-16.0)
[2024-11-28] MEDS: amLODIPine 5mg tablet PO SCH (13:37)
[2024-11-28] MEDS: lisinopril 20mg tablet PO SCH ×2 (13:37→16:23)
[2024-11-28] MEDS: methylPREDNISolone sod succ/PF 40mg inj. IV SCH (20:58)
[2024-11-28] MEDS: acetaZOLAMIDE IV 500mg inj IV SCH (20:58)
[2024-11-29] VITALS (31 sets, daily range): BP systolic 103–179; BP diastolic 48–88; PULSE 16–100; RESP 13–24; O2SAT 92–96
[2024-11-29 02:46] LABS: BASOPHILS % (AUTO) 0.2 % (0-1); EOSINOPHILS % (AUTO) 0.2 % (0-6); HEMATOCRIT 36.1 % (35.0-45.0); HEMOGLOBIN 11.8 g/dl (12.0-16.0); LYMPHOCYTES # (AUTO) 2.1 X10'3 (1.1-4.8); LYMPHOCYTES % (AUTO) 12.7 % (21-51); MEAN CORPUSCULAR HEMOGLOBIN 29.9 PG (27.0-31.0); MEAN CORPUSCULAR HGB CONC 32.6 g/dL (33.0-36.5); MEAN CORPUSCULAR VOLUME 91.6 FL (78-98); MEAN PLATELET VOLUME 7.5 FL (7.4-10.4); MONOCYTES # (AUTO) 1.1 X10'3 (0-0.9); MONOCYTES % (AUTO) 6.4 % (2-12); NEUTROPHILS # (AUTO) 13.5 X10'3 (1.8-7.7); NEUTROPHILS % (AUTO) 80.5 % (42-75); PLATELET COUNT 352 X10'3 (140-440); RED BLOOD COUNT 3.94 X10'6 (4.20-5.60); RED CELL DISTRIBUTION WIDTH 12.8 % (11.5-14.5); WHITE BLOOD COUNT 16.8 X10'3 (4.5-11.0)
[2024-11-29 03:05] LABS: ALANINE AMINOTRANSFERASE 80 U/L (12-78); ALBUMIN 2.3 G/DL (3.4-5.0); ALBUMIN/GLOBULIN RATIO 0.6 (1.1-1.5); ALKALINE PHOSPHATASE 117 IU/L (46-116); ANION GAP 6 (8-16); ASPARTATE AMINO TRANSFERASE 40 U/L (10-37); BILIRUBIN,TOTAL 0.4 MG/DL (0.1-1.0); BLOOD UREA NITROGEN 40 MG/DL (7-18); CALCIUM 8.2 MG/DL (8.5-10.1); CHLORIDE 102 MMOL/L (99-107); CREATININE 0.69 MG/DL (0.40-0.90); GLUCOSE 145 MG/DL (70-104); MAGNESIUM 2.4 MG/DL (1.5-2.4); PHOSPHORUS 4.9 MG/DL (2.3-4.5); POTASSIUM 3.7 MMOL/L (3.5-5.1); SODIUM 141 MMOL/L (135-145); TOTAL CARBON DIOXIDE 33.1 MMOL/L (24-32); TOTAL PROTEIN 5.9 G/DL (6.4-8.2); TRIGLYCERIDES 173 MG/DL (20-135); eCRCL 56 ML/MIN; eGFR 83 ML/MIN
[2024-11-29 03:06] LABS: PREALBUMIN 51.2 MG/DL (19-36)
[2024-11-29 03:17] LABS: HYPERSEGMENTED NEUTROPHILS FEW; TOTAL CELLS COUNTED 100
[2024-11-29 03:33] LABS: ABG BASE EXCESS 7.1 mmol/L (-2.0-3.0); ABG HCO3 31.3 mmol/L (21.0-28.0); ABG OXYGEN SATURATION 94.8 % (94.0-98.0); ABG PCO2 (T) 43.3 mmHg (32.0-45.0); ABG PH (T) 7.478 (7.350-7.450); ABG PO2 (T) 75.6 mmHg (83.0-108.0); FHHb 5.2 % (0.0-5.0); FMetHb 0.3 % (0.0-1.5); FO2Hb 94.5 % (94.0-98.0); MODE CMV PRVC IT 0.9; PATIENT TEMPERATURE 37.3; PEEP 5 cm H2O; RESPIRATORY RATE 18 b/min; TIDAL VOLUME 350 mL; TOTAL HEMOGLOBIN 11.7 G/dl (12.0-16.0)
[2024-11-29] MEDS ORDERED: lisinopril 20mg tablet PO SCH (08:00)
[2024-11-29] MEDS ORDERED: amLODIPine 5mg tablet PO SCH (08:00)
[2024-11-30] VITALS (25 sets, daily range): BP systolic 83–130; BP diastolic 47–88; PULSE 71–121; RESP 11–26; O2SAT 90–98
[2024-11-30 02:36] LABS: BASOPHILS % (AUTO) 0.1 % (0-1); EOSINOPHILS # (AUTO) 0.1 X10'3 (0-0.9); EOSINOPHILS % (AUTO) 0.4 % (0-6); HEMATOCRIT 34.5 % (35.0-45.0); HEMOGLOBIN 11.3 g/dl (12.0-16.0); LYMPHOCYTES % (AUTO) 15.4 % (21-51); MEAN CORPUSCULAR HEMOGLOBIN 30.3 PG (27.0-31.0); MEAN CORPUSCULAR HGB CONC 32.8 g/dL (33.0-36.5); MEAN CORPUSCULAR VOLUME 92.3 FL (78-98); MEAN PLATELET VOLUME 7.6 FL (7.4-10.4); MONOCYTES # (AUTO) 1.3 X10'3 (0-0.9); MONOCYTES % (AUTO) 6.7 % (2-12); NEUTROPHILS % (AUTO) 77.4 % (42-75); PLATELET COUNT 340 X10'3 (140-440); RED BLOOD COUNT 3.74 X10'6 (4.20-5.60); RED CELL DISTRIBUTION WIDTH 13.1 % (11.5-14.5); WHITE BLOOD COUNT 19.3 X10'3 (4.5-11.0)
[2024-11-30 02:52] LABS: ALANINE AMINOTRANSFERASE 72 U/L (12-78); ALBUMIN 2.6 G/DL (3.4-5.0); ALBUMIN/GLOBULIN RATIO 0.8 (1.1-1.5); ALKALINE PHOSPHATASE 105 IU/L (46-116); ANION GAP 6 (8-16); ASPARTATE AMINO TRANSFERASE 26 U/L (10-37); BILIRUBIN,TOTAL 0.6 MG/DL (0.1-1.0); BLOOD UREA NITROGEN 40 MG/DL (7-18); BUN/CREATININE RATIO 64.5 (10.0-20.0); CALCIUM 8.4 MG/DL (8.5-10.1); CHLORIDE 106 MMOL/L (99-107); CREATININE 0.62 MG/DL (0.40-0.90); GLUCOSE 123 MG/DL (70-104); MAGNESIUM 2.6 MG/DL (1.5-2.4); POTASSIUM 3.3 MMOL/L (3.5-5.1); SODIUM 144 MMOL/L (135-145); TOTAL CARBON DIOXIDE 32.2 MMOL/L (24-32); eCRCL 62 ML/MIN; eGFR > 90 ML/MIN
[2024-11-30 03:16] LABS: TOTAL CELLS COUNTED 100
[2024-11-30] MEDS ORDERED: potassium Cl 20mEq/100mL bag 100 ML IV SCH (03:40)
[2024-11-30] MEDS: INSULIN LISPRO 100 UNIT/ML INSULN.PEN MULTI-DOSE SQ SCH (07:00)
[2024-11-30] MEDS: acetaminophen 325mg/10.15ml oral unit dose solution OGT PRN (12:32)
[2024-11-30 15:44] LABS: BILIRUBIN,URINE NEGATIVE (Neg); CLARITY,URINE SLIGHTLY CLOUDY (Clear); COLOR,URINE YELLOW (Yellow); GLUCOSE, URINE NEGATIVE (Neg); KETONES,URINE NEGATIVE (Neg); LEUKOCYTE ESTERASE ,URINE NEGATIVE (Neg); NITRITES, URINE NEGATIVE (Neg); OCCULT BLOOD,URINE TRACE-INTACT (Neg); PROTEIN,URINE NEGATIVE (Neg); UROBILINOGEN,URINE 0.2 E.U/dL (0.2-1.0)
[2024-11-30 15:49] LABS: UA COLLECTION TYPE FOLEY CATH
[2024-11-30 15:56] LABS: BACTERIA,URINE NONE SEEN /HPF (Neg); FINE GRANULAR CAST 0-3 /LPF (NEGATIVE); MUCUS STRANDS FEW /LPF (Neg); SQUAMOUS EPITHELIAL CELL,UR NONE SEEN /LPF (FEW); WBC,URINE 0-4 /HPF (0-4)
[2024-11-30] MEDS: ringers solution, lacted 1,000 ML IV ONE (16:48)
[2024-12-01] VITALS (23 sets, daily range): BP systolic 91–121; BP diastolic 43–66; PULSE 76–104; RESP 11–22; O2SAT 93–100
[2024-12-01 06:16] LABS: BASOPHILS % (AUTO) 0.2 % (0-1); EOSINOPHILS # (AUTO) 0.2 X10'3 (0-0.9); EOSINOPHILS % (AUTO) 1.3 % (0-6); HEMATOCRIT 28.9 % (35.0-45.0); HEMOGLOBIN 9.7 g/dl (12.0-16.0); LYMPHOCYTES # (AUTO) 2.7 X10'3 (1.1-4.8); LYMPHOCYTES % (AUTO) 16.4 % (21-51); MEAN CORPUSCULAR HEMOGLOBIN 31.2 PG (27.0-31.0); MEAN CORPUSCULAR HGB CONC 33.7 g/dL (33.0-36.5); MEAN CORPUSCULAR VOLUME 92.8 FL (78-98); MONOCYTES # (AUTO) 1.1 X10'3 (0-0.9); MONOCYTES % (AUTO) 6.8 % (2-12); NEUTROPHILS # (AUTO) 12.3 X10'3 (1.8-7.7); NEUTROPHILS % (AUTO) 75.3 % (42-75); PLATELET COUNT 243 X10'3 (140-440); RED BLOOD COUNT 3.11 X10'6 (4.20-5.60); RED CELL DISTRIBUTION WIDTH 12.8 % (11.5-14.5); WHITE BLOOD COUNT 16.4 X10'3 (4.5-11.0)
[2024-12-01 06:32] LABS: ALANINE AMINOTRANSFERASE 59 U/L (12-78); ALBUMIN 2.3 G/DL (3.4-5.0); ALBUMIN/GLOBULIN RATIO 0.7 (1.1-1.5); ALKALINE PHOSPHATASE 112 IU/L (46-116); ANION GAP 3 (8-16); ASPARTATE AMINO TRANSFERASE 30 U/L (10-37); BILIRUBIN,TOTAL 0.6 MG/DL (0.1-1.0); BLOOD UREA NITROGEN 38 MG/DL (7-18); BUN/CREATININE RATIO 63.3 (10.0-20.0); CALCIUM 8.1 MG/DL (8.5-10.1); CHLORIDE 110 MMOL/L (99-107); GLUCOSE 110 MG/DL (70-104); MAGNESIUM 2.7 MG/DL (1.5-2.4); PHOSPHORUS 3.1 MG/DL (2.3-4.5); POTASSIUM 3.5 MMOL/L (3.5-5.1); SODIUM 145 MMOL/L (135-145); TOTAL CARBON DIOXIDE 31.7 MMOL/L (24-32); TOTAL PROTEIN 5.5 G/DL (6.4-8.2); eCRCL 64 ML/MIN; eGFR > 90 ML/MIN
[2024-12-01] MEDS: acetaminophen 325mg/10.15ml oral unit dose solution OGT PRN (14:17)
[2024-12-01] MEDS: lactose-reduced food (Ensure Enlive) - 237ml bottle PO SCH (14:24)
[2024-12-02] VITALS (15 sets, daily range): BP systolic 95–131; BP diastolic 49–67; PULSE 81–115; RESP 14–22; TEMP 97.3–98.8; O2SAT 92–97
[2024-12-02 06:42] LABS: BASOPHILS % (AUTO) 0.2 % (0-1); EOSINOPHILS # (AUTO) 0.3 X10'3 (0-0.9); EOSINOPHILS % (AUTO) 1.6 % (0-6); HEMOGLOBIN 8.7 g/dl (12.0-16.0); LYMPHOCYTES # (AUTO) 2.6 X10'3 (1.1-4.8); LYMPHOCYTES % (AUTO) 15.5 % (21-51); MEAN CORPUSCULAR HEMOGLOBIN 30.8 PG (27.0-31.0); MEAN CORPUSCULAR HGB CONC 33.3 g/dL (33.0-36.5); MEAN CORPUSCULAR VOLUME 92.6 FL (78-98); MEAN PLATELET VOLUME 8.1 FL (7.4-10.4); MONOCYTES # (AUTO) 1.5 X10'3 (0-0.9); NEUTROPHILS # (AUTO) 12.1 X10'3 (1.8-7.7); NEUTROPHILS % (AUTO) 73.7 % (42-75); PLATELET COUNT 252 X10'3 (140-440); RED BLOOD COUNT 2.81 X10'6 (4.20-5.60); RED CELL DISTRIBUTION WIDTH 12.9 % (11.5-14.5); WHITE BLOOD COUNT 16.4 X10'3 (4.5-11.0)
[2024-12-02 07:26] LABS: ALANINE AMINOTRANSFERASE 76 U/L (12-78); ALBUMIN 2.3 G/DL (3.4-5.0); ALBUMIN/GLOBULIN RATIO 0.7 (1.1-1.5); ALKALINE PHOSPHATASE 125 IU/L (46-116); ANION GAP 7 (8-16); ASPARTATE AMINO TRANSFERASE 44 U/L (10-37); BILIRUBIN,TOTAL 0.7 MG/DL (0.1-1.0); BLOOD UREA NITROGEN 33 MG/DL (7-18); BUN/CREATININE RATIO 68.8 (10.0-20.0); CHLORIDE 107 MMOL/L (99-107); CREATININE 0.48 MG/DL (0.40-0.90); GLUCOSE 107 MG/DL (70-104); MAGNESIUM 2.4 MG/DL (1.5-2.4); PHOSPHORUS 2.4 MG/DL (2.3-4.5); POTASSIUM 3.4 MMOL/L (3.5-5.1); SODIUM 142 MMOL/L (135-145); TOTAL CARBON DIOXIDE 28.5 MMOL/L (24-32); TOTAL PROTEIN 5.7 G/DL (6.4-8.2); eCRCL 80 ML/MIN; eGFR > 90 ML/MIN
[2024-12-02] MEDS: pantoprazole 40mg Tablet.DR PO SCH (08:09)
[2024-12-02] MEDS ORDERED: magnesium sulf-water 4G/100mL 100 ML IV PRN (14:30)
[2024-12-02] MEDS ORDERED: potassium Cl 40MEQ/1/2NS 520ml 520 ML IV PRN (14:30)
[2024-12-02] MEDS ORDERED: potassium Cl 20 mEq SR tablet PO PRN (14:30)
[2024-12-02] MEDS ORDERED: magnesium Cl slow-release 64mg tablet PO PRN (14:30)
[2024-12-02] MEDS ORDERED: magnesium sulf-water 2g/50mL 50 ML IV PRN (14:30)
[2024-12-02] MEDS: K and/or MAG REPLACEMENT MC SCH (20:00)
[2024-12-03] VITALS (8 sets, daily range): BP systolic 107–124; BP diastolic 52–70; PULSE 79–103; RESP 14–18; TEMP 96.6–98.3; O2SAT 94–96
[2024-12-03 07:02] LABS: BASOPHILS % (AUTO) 0.4 % (0-1); EOSINOPHILS # (AUTO) 0.2 X10'3 (0-0.9); EOSINOPHILS % (AUTO) 1.5 % (0-6); HEMATOCRIT 24.5 % (35.0-45.0); HEMOGLOBIN 8.2 g/dl (12.0-16.0); LYMPHOCYTES # (AUTO) 2.5 X10'3 (1.1-4.8); LYMPHOCYTES % (AUTO) 20.1 % (21-51); MEAN CORPUSCULAR HEMOGLOBIN 30.9 PG (27.0-31.0); MEAN CORPUSCULAR HGB CONC 33.5 g/dL (33.0-36.5); MONOCYTES # (AUTO) 1.1 X10'3 (0-0.9); MONOCYTES % (AUTO) 9.2 % (2-12); NEUTROPHILS # (AUTO) 8.5 X10'3 (1.8-7.7); NEUTROPHILS % (AUTO) 68.8 % (42-75); PLATELET COUNT 278 X10'3 (140-440); RED BLOOD COUNT 2.67 X10'6 (4.20-5.60); RED CELL DISTRIBUTION WIDTH 12.9 % (11.5-14.5); WHITE BLOOD COUNT 12.3 X10'3 (4.5-11.0)
[2024-12-03 07:37] LABS: ALANINE AMINOTRANSFERASE 69 U/L (12-78); ALBUMIN/GLOBULIN RATIO 0.5 (1.1-1.5); ALKALINE PHOSPHATASE 150 IU/L (46-116); ANION GAP 8 (8-16); ASPARTATE AMINO TRANSFERASE 37 U/L (10-37); BILIRUBIN,TOTAL 0.7 MG/DL (0.1-1.0); BLOOD UREA NITROGEN 26 MG/DL (7-18); BUN/CREATININE RATIO 55.3 (10.0-20.0); CHLORIDE 106 MMOL/L (99-107); CREATININE 0.47 MG/DL (0.40-0.90); GLUCOSE 116 MG/DL (70-104); MAGNESIUM 2.3 MG/DL (1.5-2.4); PHOSPHORUS 2.3 MG/DL (2.3-4.5); POTASSIUM 3.2 MMOL/L (3.5-5.1); PREALBUMIN 28.8 MG/DL (19-36); SODIUM 138 MMOL/L (135-145); TOTAL CARBON DIOXIDE 24.5 MMOL/L (24-32); TOTAL PROTEIN 5.7 G/DL (6.4-8.2); TRIGLYCERIDES 133 MG/DL (20-135); eCRCL 82 ML/MIN; eGFR > 90 ML/MIN
[2024-12-03 15:17] LABS: RED BLOOD COUNT 3.07 X10'6 (4.20-5.60); RETICULOCYTE % (AUTO) 3.6 % (0.5-1.5)
[2024-12-03 15:42] LABS: THYROID STIMULATING HORMONE 1.92 ulU/ml (0.34-4.50)
[2024-12-03 16:33] LABS: OCCULT BLOOD STOOL NEGATIVE (Neg)
[2024-12-04 02:00] VITALS: BP 106/59; PULSE 80; RESP 16; TEMP 96.8; O2SAT 96
[2024-12-04 07:00] VITALS: BP 125/63; PULSE 86; RESP 18; TEMP 98.9; O2SAT 90
[2024-12-04 07:09] LABS: BASOPHILS # (AUTO) 0.1 X10'3 (0-0.2); BASOPHILS % (AUTO) 0.9 % (0-1); EOSINOPHILS # (AUTO) 0.2 X10'3 (0-0.9); EOSINOPHILS % (AUTO) 1.6 % (0-6); HEMATOCRIT 25.1 % (35.0-45.0); HEMOGLOBIN 8.3 g/dl (12.0-16.0); LYMPHOCYTES # (AUTO) 2.4 X10'3 (1.1-4.8); LYMPHOCYTES % (AUTO) 22.4 % (21-51); MEAN CORPUSCULAR HEMOGLOBIN 30.8 PG (27.0-31.0); MEAN CORPUSCULAR HGB CONC 33.1 g/dL (33.0-36.5); MEAN PLATELET VOLUME 8.5 FL (7.4-10.4); MONOCYTES # (AUTO) 0.9 X10'3 (0-0.9); MONOCYTES % (AUTO) 8.4 % (2-12); NEUTROPHILS % (AUTO) 66.7 % (42-75); PLATELET COUNT 327 X10'3 (140-440); RED BLOOD COUNT 2.71 X10'6 (4.20-5.60); RED CELL DISTRIBUTION WIDTH 12.9 % (11.5-14.5); WHITE BLOOD COUNT 10.6 X10'3 (4.5-11.0)
[2024-12-04 07:31] LABS: ALANINE AMINOTRANSFERASE 65 U/L (12-78); ALBUMIN 2.3 G/DL (3.4-5.0); ALBUMIN/GLOBULIN RATIO 0.6 (1.1-1.5); ALKALINE PHOSPHATASE 170 IU/L (46-116); ANION GAP 9 (8-16); ASPARTATE AMINO TRANSFERASE 36 U/L (10-37); BILIRUBIN,TOTAL 0.8 MG/DL (0.1-1.0); BLOOD UREA NITROGEN 21 MG/DL (7-18); BUN/CREATININE RATIO 38.9 (10.0-20.0); CALCIUM 8.1 MG/DL (8.5-10.1); CHLORIDE 106 MMOL/L (99-107); CREATININE 0.54 MG/DL (0.40-0.90); GLUCOSE 106 MG/DL (70-104); MAGNESIUM 2.2 MG/DL (1.5-2.4); PHOSPHORUS 2.7 MG/DL (2.3-4.5); POTASSIUM 3.4 MMOL/L (3.5-5.1); SODIUM 141 MMOL/L (135-145); TOTAL PROTEIN 5.9 G/DL (6.4-8.2); eCRCL 71 ML/MIN; eGFR > 90 ML/MIN
[2024-12-04] MEDS: potassium Cl 20 mEq SR tablet PO PRN (07:44)
[2024-12-04 08:00] VITALS: RESP 18; O2SAT 95
[2024-12-04 11:00] VITALS: BP 127/64; PULSE 94; RESP 18; TEMP 98.2; O2SAT 95
== END 2024-12-04 14:30 | DRG 870 ==
LOC: ER 10:02 → ED HOLD 15:10 → CICU 2S 17:34 → PCU 3S 12-02 07:21
PROVIDERS: ADMIT Internal Medicine Critical Care Medicine; ATTEND Internal Medicine Critical Care Medicine
PROC: 0BH17EZ Insertion of Endotracheal Airway into Trachea, Via Natural or Artificial Opening (ICD-10-PCS; principal; 2024-11-21)
PROC: 5A1955Z Respiratory Ventilation, Greater than 96 Consecutive Hours (ICD-10-PCS; 2024-11-21)
PROC: 02HV33Z Insertion of Infusion Device into Superior Vena Cava, Percutaneous Approach (ICD-10-PCS; 2024-11-21)
PROC: B548ZZA Ultrasonography of Superior Vena Cava, Guidance (ICD-10-PCS; 2024-11-21)
PROC: B32T1ZZ Computerized Tomography (CT Scan) of Left Pulmonary Artery using Low Osmolar Contrast (ICD-10-PCS; 2024-11-21)
PROC: B3201ZZ Computerized Tomography (CT Scan) of Thoracic Aorta using Low Osmolar Contrast (ICD-10-PCS; 2024-11-21)
PROC: B32S1ZZ Computerized Tomography (CT Scan) of Right Pulmonary Artery using Low Osmolar Contrast (ICD-10-PCS; 2024-11-21)
PROC: 0W9930Z Drainage of Right Pleural Cavity with Drainage Device, Percutaneous Approach (ICD-10-PCS; 2024-11-27)
DX: A41.9 Sepsis, unspecified organism (principal); J10.08 Influenza due to other identified influenza virus with other specified pneumonia; J96.01 Acute respiratory failure with hypoxia; R65.21 Severe sepsis with septic shock; J15.9 Unspecified bacterial pneumonia; I21.A1 Myocardial infarction type 2; E87.1 Hypo-osmolality and hyponatremia; E87.0 Hyperosmolality and hypernatremia; R04.2 Hemoptysis; E11.9 Type 2 diabetes mellitus without complications; E78.00 Pure hypercholesterolemia, unspecified; I25.10 Atherosclerotic heart disease of native coronary artery without angina pectoris; I10 Essential (primary) hypertension; Z88.0 Allergy status to penicillin; Z88.2 Allergy status to sulfonamides; Z88.8 Allergy status to other drugs, medicaments and biological substances; Z88.1 Allergy status to other antibiotic agents; Z88.5 Allergy status to narcotic agent; Z79.899 Other long term (current) drug therapy
CPT/HCPCS: 31500; 36415; 36600; 71045; 71275; 80048; 80053; 81001; 82272; 82728; 82803; 82948; 83036; 83540; 83550; 83605; 83615; 83735; 83880; 84100; 84134; 84145; 84443; 84478; 84484; 85007; 85018; 85025; 85045; 85379; 85651; 86885; 86900; 86901; 87040; 87081; 87502; 87503; 92508; 92616; 93005; 93306; 94002; 94003; 94760; 97110; 97116; 97161; 97530; 99291; A4615; A4649; A6213; A6250; A6258; A6449; A9900; C1729; C1751; C1758; G0378; J0131; J0360; J0696; J1100; J1120; J1650; J1815; J1940; J2020; J2405; J2470; J2704; J2919; J3010; J3370; J3480; J3490; J7030; J7040; J7120; Q9967